=== PATIENT | male | born 1960 | race Caucasian/White ===

== ENCOUNTER 2017-03-16 04:13 | Emergency (ER) | payer OTHER ==
[~2017-03-16] VITALS: Ht 172.7 cm; Wt 88.6 kg
[2017-03-16 04:27] LABS: GLUCOSE,POINT OF CARE 159 MG/DL (70-110)
[2017-03-16] MEDS ORDERED: BUPR75 PO (04:30)
[2017-03-16] MEDS ORDERED: ZOLP5 PO (04:30)
[2017-03-16] MEDS ORDERED: AMLO-511 PO (04:30)
[2017-03-16] MEDS ORDERED: LINA5TAB PO (04:30)
[2017-03-16] MEDS ORDERED: FLUT16H NASAL (04:30)
[2017-03-16] MEDS ORDERED: ATOR20TA86 PO (04:30)
[2017-03-16] MEDS ORDERED: METF500T4 PO (04:30)
[2017-03-16] MEDS ORDERED: OMEP20 PO (04:30)
[2017-03-16] MEDS ORDERED: TAMS0.4C32 PO (04:30)
[2017-03-16] MEDS ORDERED: OXYM15MI5 NS (04:30)
[2017-03-16] MEDS ORDERED: [UNRECOGNIZED DRUG - OTHER] PO (04:30)
[2017-03-16] MEDS ORDERED: 0.9% SODIUM CHLORIDE 5 ML NEB SOLUTION NEB ONE (05:23)
[2017-03-16] MEDS ORDERED: ALBUTEROL SULFATE 2.5 MG/0.5 ML NEB SOLUTION NEB ONE (05:30)
[2017-03-16] MEDS ORDERED: IPRATROPIUM BROMIDE 0.5 MG/2.5 ML NEB SOLUTION NEB ONE (05:30)
[2017-03-16 06:17] VITALS: BP 130/86
[2017-03-16 07:07] LABS: INFLUENZA TYPE B NEGATIVE FOR TYPE B (NEGATIVE)
== END 2017-03-16 07:30 | disposition home or self-care (01) ==
LOC: EMS 04:15
DX: J06.9 Acute upper respiratory infection, unspecified (principal); J18.0 Bronchopneumonia, unspecified organism; E11.9 Type 2 diabetes mellitus without complications; E78.00 Pure hypercholesterolemia, unspecified; I10 Essential (primary) hypertension
CPT/HCPCS: 71020; 82962; 87804; 94640; 99285; J7613

== ENCOUNTER 2017-05-01 20:30 | Emergency (ER) | payer OTHER ==
[~2017-05-01] VITALS: Ht 157.5 cm; Wt 87.3 kg
[~2017-05-01 20:30] MED LIST: AMLO-511 PO; ATOR20TA86 PO; BUPR75 PO; FLUT16H NASAL; LINA5TAB PO; METF500T4 PO; OMEP20 PO; OXYM15MI5 NS; TAMS0.4C32 PO; ZOLP5 PO; [UNRECOGNIZED DRUG - OTHER] PO
[2017-05-01 20:43] LABS: GLUCOSE,POINT OF CARE 109 MG/DL (70-110)
[2017-05-01 21:57] VITALS: BP 122/78
== END 2017-05-01 22:33 | disposition home or self-care (01) ==
LOC: EMS 20:31
DX: J31.0 Chronic rhinitis (principal); E11.9 Type 2 diabetes mellitus without complications; E78.00 Pure hypercholesterolemia, unspecified; I10 Essential (primary) hypertension
CPT/HCPCS: 82962; 93005; 99284

== ENCOUNTER 2017-05-29 23:43 | Emergency (ER) | payer OTHER ==
[~2017-05-29] VITALS: Ht 172.7 cm; Wt 87.3 kg
[2017-05-29 23:58] LABS: GLUCOSE,POINT OF CARE 166 MG/DL (70-110)
[2017-05-30 00:37] VITALS: BP 133/85
== END 2017-05-30 00:41 | disposition home or self-care (01) ==
LOC: EMS 23:44
DX: R09.81 Nasal congestion (principal); E11.9 Type 2 diabetes mellitus without complications; E78.00 Pure hypercholesterolemia, unspecified; I10 Essential (primary) hypertension
CPT/HCPCS: 82962; 93005; 99283

== ENCOUNTER 2017-09-09 22:31 | Emergency (ER) | payer OTHER ==
[~2017-09-09] VITALS: Ht 172.7 cm; Wt 87.7 kg
[2017-09-09 22:37] LABS: GLUCOSE,POINT OF CARE 199 MG/DL (70-110)
[2017-09-10] MEDS ORDERED: NAPROXEN 250 MG TABLET PO ONE (01:45)
[2017-09-10] MEDS ORDERED: ACETAMINOPHEN/CODEINE 300-30 MG TABLET PO ONE (01:45)
[2017-09-10 01:55] VITALS: BP 131/79
== END 2017-09-10 02:36 | disposition home or self-care (01) ==
LOC: EMS 22:31
DX: S93.401A Sprain of unspecified ligament of right ankle, initial encounter (principal); E11.9 Type 2 diabetes mellitus without complications; E78.00 Pure hypercholesterolemia, unspecified; I10 Essential (primary) hypertension; X58.XXXA Exposure to other specified factors, initial encounter; Y93.89 Activity, other specified; Y92.89 Other specified places as the place of occurrence of the external cause; Y99.8 Other external cause status
CPT/HCPCS: 82962; 99284

== ENCOUNTER 2018-10-28 21:47 | Emergency (ER) | payer OTHER ==
[~2018-10-28] VITALS: Ht 172.7 cm; Wt 84.1 kg
[~2018-10-28 21:47] MED LIST changes: +METF-960 PO; -METF500T4 PO
[2018-10-28 22:08] VITALS: BP 146/86
[2018-10-28 22:34] LABS: GLUCOSE,POINT OF CARE 207 MG/DL (70-110)
== END 2018-10-28 23:30 | disposition left against medical advice (07) ==
LOC: EMS 21:50
DX: H92.02 Otalgia, left ear (principal); Z53.21 Procedure and treatment not carried out due to patient leaving prior to being seen by health care provider

== ENCOUNTER 2025-05-09 22:15 | Emergency (ER) | payer MEDICARE, OTHER ==
[~2025-05-09] VITALS: Ht 378.5 cm; Wt 84.1 kg
[~2025-05-09 22:15] MED LIST changes: +AMLO-257 PO; -AMLO-511 PO; +ATOR20TA PO; -ATOR20TA86 PO; +BUPR-344 PO; -BUPR75 PO; -FLUT16H NASAL; +FLUT16SP NASAL; +METF-1211 PO; -METF-960 PO; +OMEP-148 PO; -OMEP20 PO; -OXYM15MI5 NS; -TAMS0.4C32 PO; +TAMS0.4C94 PO; +ZOLP-280 PO; -ZOLP5 PO; -[UNRECOGNIZED DRUG - OTHER] PO
[2025-05-09 22:19] VITALS: BP 133/77; PULSE 84; RESP 18; TEMP 98.1; O2SAT 98
[2025-05-09 22:41] LABS: GLUCOMETER DEV NAME(LOC) ERT.7; GLUCOSE,POINT OF CARE 97 MG/DL (70-110)
[2025-05-10] MEDS: METOCLOPRAMIDE HCL 10 MG TABLET PO ONE (00:29)
[2025-05-10] MEDS: IBUPROFEN 400 MG TABLET PO ONE (00:29)
[2025-05-10] MEDS: CETIRIZINE HCL 10 MG TABLET PO ONE (00:52)
== END 2025-05-10 01:11 | disposition home or self-care (01) ==
LOC: EMS 22:15
DX: H69.92 Unspecified Eustachian tube disorder, left ear (principal); R51.9 Headache, unspecified; E11.9 Type 2 diabetes mellitus without complications; E78.00 Pure hypercholesterolemia, unspecified; F32.A Depression, unspecified; F41.9 Anxiety disorder, unspecified; I10 Essential (primary) hypertension; Z79.84 Long term (current) use of oral hypoglycemic drugs; Z79.899 Other long term (current) drug therapy
CPT/HCPCS: 82962; 99284